=== PATIENT | female | born 1965 | race Caucasian/White ===

== ENCOUNTER 2016-11-01 05:57 | Emergency (ER) | payer SELFPAY ==
[~2016-11-01] VITALS: Ht 157.5 cm; Wt 81.4 kg
[~2016-11-01 05:57] MED LIST: Z.0.NO CURRENT MEDS
[2016-11-01 06:06] VITALS: BP 211/114; PULSE 77; RESP 18; TEMP 97.8; O2SAT 99
--- NOTE | 2016-11-01 06:33 | PD ---
HPI Chief Complaint: Back/ Neck Pain or Injury Time Seen by Provider: 06:13 Travel History International Travel<30 days: No Contact w/Intl Traveler<30days: No Traveled to known affect area: No History of Present Illness HPI The patient is a 50-year-old female who had a dental cleaning on Wednesday. She says she smokes a pack and a half a day and always gets infections in her mouth when she has things like dental cleaning her injections. She also noted some left ear pain and noted some left neck and shoulder pain. He states he feels pain with swallowing on the left side of her throat. She says she can feel "knots" in the scalp area near the superior portion of the neck, along the anterior cervical chain and posterior cervical chain. She denies any fever. She is extremely nervous and states her blood pressure goes up when she gets nervous. She has been told many times to see her primary care physician about checking her blood pressure. She has been on blood pressure medicine the past but does not stay on the, she is usually noncompliant. The patient states she probably slept on her neck wrong night and was very uncomfortable since. PFSH Past Medical History Anxiety: Yes (PTSD: "EARLY 90'S") Cardiovascular Problems: Yes ("POOR CIRCULATION TO LEFT FOOT") High Cholesterol: Yes (NO MEDS) GERD: Yes Hypertension: Yes (NO MEDS CURRENTLY) Tetanus Vaccination: > 5 Years Influenza Vaccination: No ?: Not LMP: AUGUST 2016 : 1 Miscarriage: 1 Dilation and Curettage (D&C): Yes Past Surgical History Gynecologic Surgery: Yes (LABIECTOMY) Other Surgery: Yes Social History Alcohol Use: Yes (OCCASIONALLY) Tobacco Use: Yes (1.5 PPD) Substance Use: Yes ("WEED EVERY NOW AND AGAIN") Allergies-Medications (Allergen,Severity, Reaction): Coded Allergies: Penicillin (Verified Allergy, Mild, 11/01/16) Reported Meds & Prescriptions Reported Meds & Active Scripts Active No Active Prescriptions or Reported Medications Review of Systems Except as stated in HPI: all other systems reviewed are Neg Physical Exam Narrative GENERAL: Well-nourished, well-developed patient who is extremely anxious and moderate apparent distress with her left neck/trapezius/left ear pain. Her vital signs show blood pressure 211/114. The patient cannot relax because she is so anxious. SKIN: Focused skin assessment warm/dry. HEAD: Normocephalic. EYES: No scleral icterus. No injection or drainage. NECK: Supple, trachea midline. No JVD. There are few slightly tender but not particularly enlarged lymph nodes along the left anterior cervical chain. There are a few slightly tender nonenlarged nodes on the left posterior cervical chain CARDIOVASCULAR: Regular rate and rhythm without murmurs, gallops, or rubs. RESPIRATORY: Breath sounds equal bilaterally. No accessory muscle use. GASTROINTESTINAL: Abdomen soft, non-tender, nondistended. MUSCULOSKELETAL: No cyanosis, or edema. There is tenderness over the trapezius on the left and this reproduces much of the patient's pain. BACK: Nontender without obvious deformity. No CVA tenderness. ENT: The right tympanic membrane and canal are clear. The left tympanic membrane is slightly dull but the canal is clear. The throat is slightly red without exudate or abscess. There is no TMJ tenderness present. DENTAL: No loose or chipped teeth. No malocclusion. There is no dental tenderness present and there is no drainable abscess on the teeth. Data Data Last Documented VS Vital Signs Date Time Temp Pulse Resp B/P Pulse Ox O2 Delivery O2 Flow Rate FiO2 11/01/16 06:06 97.8 77 18 211/114 99 Orders Orphenadrine Inj (Norflex Inj) (11/01/16 06:45) Ketorolac Inj (Toradol Inj) (11/01/16 06:45) MDM Medical Decision Making Medical Screen Exam Complete: Yes Emergency Medical Condition: Yes Medical Record Reviewed: Yes Differential Diagnosis Pharyngitis, otitis media, otitis externa, cervical lymphadenitis, trapezius strain, TMJ pain, dental infection Narrative Course The patient has a left trapezius strain. She also has a likely left otitis media. The eardrum is dull and she is painful on that ear. Plan: The patient be given prescriptions for Motrin, Flexeril and erythromycin. A heating pad will also be useful for her. Diagnosis Primary Impression: Strain of left trapezius muscle Additional Impression: Otitis media, left Additional Instructions: As we discussed, turn the heating pad on as well as setting an interposed a towel between your skin and the pad. Warmth is desirable but hot does not add any benefit and creates a burn risk. Erythromycin and ibuprofen should be taken with food because they can nauseate you. Follow-up with your primary care physician because her blood pressure is elevated here. I realize it came down when he started to relax. Dr. Novak will get a true blood pressure and his office when you are relaxed. Do not drink alcohol or drive on any of these prescription medications. Med/Other Pt SpecificInfo: Prescription(s) given Scripts Cyclobenzaprine (Flexeril)10 Mg Tab10 Mg PO TID #30 TAB Ref 0 Prov:Fernie Haynes MD 11/01/16 Erythromycin Ethylsuccinate 400 Mg Typ005 Mg PO Q12H 10 Days Ref 0 Prov:Fernie Haynes MD 11/01/16 Ibuprofen 600 Mg Llo679 Mg PO TID #44 TAB Ref 0 Prov:Fernie Haynes MD 11/01/16 Disposition: 01 DISCHARGE HOME Condition: Stable Fernie Haynes MD November 01, 2016 06:33
[2016-11-01] MEDS ORDERED: ORPHENADRINE INJ 60 MG/2 ML AMP IM ONE (06:45)
[2016-11-01] MEDS ORDERED: KETOROLAC TROMETHAMINE 60 MG/2 ML (IM) VIAL IM ONE (06:45)
[2016-11-01] MEDS ORDERED: CYCL1TAB29 PO (06:47)
[2016-11-01] MEDS ORDERED: IBUP-232 PO (06:47)
[2016-11-01] MEDS ORDERED: ERYT400T4 PO (06:47)
[2016-11-01 06:49] VITALS: BP 197/90
[2016-11-01 06:53] VITALS: BP 170/86
== END 2016-11-01 07:01 | disposition home or self-care (01) ==
LOC: PHED 05:57
DX: S46.812A Strain of other muscles, fascia and tendons at shoulder and upper arm level, left arm, initial encounter (principal); H66.92 Otitis media, unspecified, left ear; E78.00 Pure hypercholesterolemia, unspecified; F17.210 Nicotine dependence, cigarettes, uncomplicated; I10 Essential (primary) hypertension; K21.9 Gastro-esophageal reflux disease without esophagitis
CPT/HCPCS: 96372; 99283; J1885; J2360